=== PATIENT | female | born 1980 | race Caucasian/White ===

== ENCOUNTER 2019-02-17 07:38 | Emergency (ER) | payer OTHER ==
[~2019-02-17] VITALS: Ht 172.7 cm; Wt 80.0 kg
[2019-02-17] MEDS ORDERED: rabies immune globulin/PF 150 unit/ml inj IMVAC ONE (08:30)
[2019-02-17] MEDS ORDERED: LIDOcaine 1% w/EPI 1:200,000 injection 10mL vial IM ONE (08:30)
[2019-02-17] MEDS ORDERED: rabies vaccine (PCEC)/PF 2.5 unit kit IM ONE (08:30)
[2019-02-17] MEDS ORDERED: TETanus/Pertussis (Acell)/Diphther VAC/PF (Tdap-Adult) 0.5ml syringe IM ONE (08:30)
[2019-02-17] MEDS ORDERED: LIDOcaine 1% W/epiNEPHrine 1:200,000 10ml vial IJ ONE (08:45)
[2019-02-17] MEDS ORDERED: HYDROcodone/acetaminophen 10/325mg tab PO ONE (09:00)
[2019-02-17] MEDS ORDERED: LORazepam 1 MG tablet PO ONE (09:00)
[2019-02-17] MEDS ORDERED: AMOX-422 PO (09:51)
[2019-02-17] MEDS ORDERED: ACET-2119 PO (09:51)
[2019-02-17] MEDS ORDERED: bacitracin 15gm ointment TP ONE (10:35)
[2019-02-17 16:14] VITALS: BP 132/86
== END 2019-02-17 16:16 | disposition home or self-care (01) ==
LOC: ER 07:42
DX: S61.210A Laceration without foreign body of right index finger without damage to nail, initial encounter (principal); S61.212A Laceration without foreign body of right middle finger without damage to nail, initial encounter; S61.252A Open bite of right middle finger without damage to nail, initial encounter; S61.250A Open bite of right index finger without damage to nail, initial encounter; S60.416A Abrasion of right little finger, initial encounter; S60.414A Abrasion of right ring finger, initial encounter; S60.311A Abrasion of right thumb, initial encounter; Z79.899 Other long term (current) drug therapy; Z79.2 Long term (current) use of antibiotics; W54.0XXA Bitten by dog, initial encounter; Y93.89 Activity, other specified; Y92.89 Other specified places as the place of occurrence of the external cause; Y99.8 Other external cause status
CPT/HCPCS: 64450; 73130; 90375; 90471; 90472; 90675; 96372; 99284

== ENCOUNTER 2019-02-22 12:26 | Emergency (ER) | payer OTHER ==
[~2019-02-22] VITALS: Ht 160 cm; Wt 63.6 kg
[~2019-02-22 12:26] MED LIST: ACET-2119 PO; AMOX-422 PO
[2019-02-22 12:38] VITALS: BP 159/99
--- NOTE | 2019-02-22 14:33 | NUR ---
pt waiting for the md,pt dressing removed but not removed completely as pt want the dr to be at bedside as per pt she has severe pain and she does not want to take it off untill provider comes and see and prescribe pain meds.
[2019-02-22] MEDS ORDERED: ketorolac trometh inj. 60 MG/2 ML VIAL IM ONE (15:05)
[2019-02-22] MEDS ORDERED: HYDROcodone/acetaminophen 5mg/325mg tablet PO ONE (15:30)
[2019-02-22] MEDS ORDERED: HYDR-3965 PO (18:36)
== END 2019-02-22 18:44 | disposition home or self-care (01) ==
LOC: ER 12:26
DX: S61.212D Laceration without foreign body of right middle finger without damage to nail, subsequent encounter (principal); S60.511D Abrasion of right hand, subsequent encounter; F10.99 Alcohol use, unspecified with unspecified alcohol-induced disorder; Z79.899 Other long term (current) drug therapy; W54.0XXD Bitten by dog, subsequent encounter; Y90.9 Presence of alcohol in blood, level not specified
CPT/HCPCS: 96372; 99283; J1885